=== PATIENT | female | born 1980 | race Caucasian/White ===

== ENCOUNTER 2023-12-03 16:10 | Emergency (ER) | payer SELFPAY ==
[~2023-12-03] VITALS: Ht 170.2 cm; Wt 72.7 kg
[2023-12-03 16:10] VITALS: BP 114/78; PULSE 104; RESP 19; O2SAT 99
[2023-12-03] MEDS: methylPREDNISolone SOD SUCC 125 MG/2 ML VL IM ONE (20:29)
[2023-12-03] MEDS: KETOROLAC TROMETH 30 MG/ML 1ML VIAL IM ONE (20:30)
== END 2023-12-03 20:41 | disposition home or self-care (01) ==
LOC: EDBD 16:10 → ER 16:18
DX: S33.5XXA Sprain of ligaments of lumbar spine, initial encounter (principal); F17.210 Nicotine dependence, cigarettes, uncomplicated; Z88.0 Allergy status to penicillin; V89.2XXA Person injured in unspecified motor-vehicle accident, traffic, initial encounter; Y93.89 Activity, other specified; Y92.89 Other specified places as the place of occurrence of the external cause; Y99.8 Other external cause status
CPT/HCPCS: 72040; 72070; 72100; 96372; 99284; J1885; J2919

== ENCOUNTER 2024-11-12 11:31 | Inpatient (IN) | payer OTHER ==
[~2024-11-12] VITALS: Ht 167.6 cm; Wt 85.2 kg
--- NOTE | 2024-11-12 11:44 | ED.PDOC ---
HPI (NEURO) HPI Comments 44y F who presents to the ED for chief complaint of weakness. Pt states she has been having L arm weakness and was brought to the ED for possible rule out CVA. Pt in the ED is alert and oriented x 4 and able to answer all questions. Pt in the ED states she has been having nausea with associated diaphoresis and diffuse lowe pelvic abdominal pain since 0800 this AM. Pt states her symptoms exacerbated since earlier this AM and she came to the ED for evaluation. Pt noted to be distressed in the ED, noted hyperventilating. Pt otherwise denies any other symptoms. Time Seen by MD: 11:40 Primary Care Provider: RAMESH Hernandez Notes: Medications, Allergies Information Source: Patient Mode of Arrival: Wheelchair Brought in by: self Severity: Moderate Dizziness/Weakness Severity: Does not affect activitie Headache Severity: None Timing: Hours Duration: Since onset Prehospital treatment: None Onset: At rest Circumstances: Spontaneous Symptoms: Weakness History of: None Modifying factors: Nothing Associated Signs and Symptoms: Nausea, Other (diaphoresis) Past Medical History PAST MEDICAL HISTORY: Denies Surgical History: BTL Surgical History (Other): spinal fusion 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 History: No Pertinent [employer] MA[employer]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 History Family History Family History: Unobtainable Social History Smoker: Cigarettes Alcohol: Denies ETOH Use Drugs: Denies Drug Use Lives In: Home Constitutional: reports: diaphoresis; denies: chills, fatigue, fever, malaise, sweats, weakness, others EENTM: denies: blurred vision, double vision, ear bleeding, ear discharge, ear drainage, ear pain, ear ringing, eye pain, eye redness, hearing loss, mouth pain, mouth swelling, nasal discharge, nose bleeding, nose congestion, nose pain, photophobia, tearing, throat pain, throat swelling, voice changes, others Respiratory: denies: cough, hemoptysis, orthopnea, SOB at rest, shortness of breath, SOB with excertion, stridor, wheezing, others Cardiovascular: denies: chest pain, dizzy spells, diaphoresis, Dyspnea on exertion, edema, irregular heart beat, left arm pain, lightheadedness, palpitations, PND, syncope, others Gastrointestinal: reports: nausea; denies: abdomen distended, abdominal pain, blood streaked bowels, constipated, diarrhea, dysphagia, difficulty swallowing, hematemesis, melena, poor appetite, poor fluid intake, rectal bleeding, rectal pain, vomiting, others Genitourinary: denies: abnormal vagina bleeding, burning, dyspareunia, dysuria, flank pain, frequency, hematuria, incontinence, pain, , vagina discharge, urgency, others Neurological: denies: dizziness, fainting, headache, left sided numbness, left sided weakness, numbness, paresthesia, pre-existing deficit, right sided numbness, right sided weakness, seizure, speech problems, tingling, tremors, weakness, others Musculoskeletal: denies: back pain, gout, joint pain, joint swelling, muscle pain, muscle stiffness, neck pain, others Integumetry: denies: bruises, change in color, change in hair/nails, dryness, laceration, lesions, lumps, rash, wounds, others Allergic/Immunocompromised: denies: Difficulty Healing, Frequent Infections, Hives, Itching, others Hematologic/Lymphatic: denies: anemia, blood clots, easy bleeding, easy bruising, swollen glands, others Endocrine: denies: excessive hunger, excessive sweating, excessive thirst, excessive urination, flushing, intolerance to cold, intolerance to heat, unexplained weight gain, unexplained weight loss, others Psychiatric: denies: anxiety, bipolar disorder, depression, hopeless, panic disorder, schizophrenia, sleepless, suicidal, others All Other Systems: Reviewed and Negative Physical Exam General Appearance: Moderate Distress HEENT: Normal ENT Inspection, Pharynx Normal, TMs Normal Neck: Full Range of Motion, Non-Tender, Normal, Normal Inspection Respiratory: Chest Non-Tender, Lungs Clear, No Accessory Muscle Use, No Respiratory Distress, Normal Breath Sounds Cardiovascular: No Edema, No JVD, No Murmur, No Gallop, Normal Peripheral Pulses, Regular Rate/Rhythm Breast Exam: Deferred Gastrointestinal: LLQ, No Organomegaly, No Pulsatile Mass, Normal Bowel Sounds, Soft, Suprapubic, Tenderness Genitalia: Deferred Pelvic: Deferred Rectal: Deferred Extremities: No calf tenderness, Normal capillary refill, Normal inspection, Normal range of motion, Non-tender, No pedal edema Musculoskeletal : Apperance: Normal Neurologic: Alert, hiv nurse II-XII nml as Tested, Motor Weakness, Normal Affect, Normal Mood, No Sensory Deficits Cerebellar Function: Normal Reflexes: Normal Skin: Dry, Normal Color, Warm Lymphatic: No Adenopathy EKG EKG : Pulse Rate (adult): 74 [place]: Normal Cardiac Rhythm: NSR Block: None ST: Nonsp Was a procedure done? Was a procedure done?: No Differential Diagnosis (SZ) Seizure: N/A General Weakness: Electrolyte imbalance, Vertigo: central, Vertigo: peripheral, Other (anxiety, panic attack, UTI, ) X-Ray, Labs, Meds, VS Vital Signs Date Time Temp Pulse Resp B/P (MAP) Pulse Ox O2 Delivery O2 Flow Rate FiO2 11/12/24 14:27 98.0 70 20 113/70 (84) 100 98.0 11/12/24 14:27 70 20 100 Room Air 11/12/24 12:03 74 11/12/24 11:45 97.9 72 24 126/74 99 97.9 11/12/24 11:37 74 Lab Test 11/12/24 13:05 11/12/24 11:57 Range/Units Urine Color Colorless Yellow Urine Clarity Clear Clear Urine pH 8.0 5.0-9.0 Urine Specific [place] 1.009 1.001-1.035 Urine Protein Negative Negative Urine Ketones Negative Negative Urine Blood Negative Negative /uL Urine Nitrite Negative Negative Urine Bilirubin Negative Negative Urine Urobilinogen Normal Negative mg/dL Urine Leukocyte Esterase Negative Negative /uL Urine RBC 1 0 - 4 /hpf Urine Microscopic WBC < 1 0-5 /HPF Urine Squamous Epithelial Cells Few <5 /hpf Urine Bacteria None seen None Seen /hpf Urine Glucose Normal Normal mg/dL White Blood Count 11.5 H 4.4-10.8 10^3/uL Red Blood Count 5.41 H 4.0-5.20 10^6/uL Hemoglobin 15.3 12.2-16.2 g/dL Hematocrit 45.2 36.0-46.0 % Mean Corpuscular Volume 83.5 80.0-100.0 fL Mean Corpuscular Hemoglobin 28.3 28.0-32.0 pg Mean Corpuscular Hemoglobin Concent 33.9 32.0-36.0 g/dL Red Cell Distribution Width 13.6 11.8-14.3 % Platelet Count 347 140-450 10^3/uL Mean Platelet Volume 6.9 6.9-10.8 fL Neutrophils (%) (Auto) 71.2 37.0-80.0 % Lymphocytes (%) (Auto) 21.1 10.0-50.0 % Monocytes (%) (Auto) 6.1 0.0-12.0 % Eosinophils (%) (Auto) 0.8 0.0-7.0 % Basophils (%) (Auto) 0.8 0.0-2.0 % Neutrophils # (Auto) 8.2 1.6-8.6 10 ^3/uL Lymphocytes # (Auto) 2.4 0.4-5.4 10 ^3/uL Monocytes # (Auto) 0.7 0-1.3 10 ^3/uL Eosinophils # (Auto) 0.1 0-0.8 10 ^3/uL Basophils # (Auto) 0.1 0-0.2 10 ^3/uL Nucleated Red Blood Cells 0.0 % Prothrombin Time 10.1 9.3-11.8 sec Prothrombin Time INR 0.95 0.9-1.15 Activated Partial Thromboplast Time 27.0 24.5-34.5 SEC Sodium Level 141 136-145 mmol/L Potassium Level 4.4 3.5-5.1 mmol/L Chloride Level 106 98-107 mmol/L Carbon Dioxide Level 24 20-31 mmol/L Anion Gap 11 5-15 Blood Urea Nitrogen 7 L 9-23 mg/dL Creatinine 0.82 0.550-1.02 mg/dL Glomerular Filtration Rate Calc 90 >90 mL/min BUN/Creatinine Ratio 8.5 L 10.0-20.0 Serum Glucose 102 74-106 mg/dL Calcium Level 9.4 8.7-10.4 mg/dL Beta HCG, Quantitative 0.0 L 1.5-4.2 mIU/mL Current Medications Medications (Trade) Dose Ordered Sig/Kaitlin Route Start Time Stop Time Status Last Admin Ketorolac Tromethamine (Toradol Injection) 30 mg ONCE ONCE IV 11/12/24 11:45 11/12/24 11:46 DC 11/12/24 14:29 PROCEDURE(s): PELUS - PELVIC IMPRESSION: 1. Endometrium appears T-shaped thickened measuring 33.6 mm 2. There is fluid in the cul-de-sac. 3. Fluid-filled tubular structure in the left adnexa measuring 6.1 x 3.3 x 3.6 cm. 4. There is an echogenic solid structure in the left adnexa with surrounding vascularity measures 4.6 x 4.5 x 4.8 cm. Findings may represent tubo-ovarian abscess somewhat less likely in this age group ectopic correlate with beta hCG findings. IV Hep-Lock was established. The patient was given ketorolac 30 mg IV push We spoke with Dr. Altamirano who is the OBGYN on-call and she did come down and evaluate the patient. There is a concern that this patient may have an abscess. After evaluation, we are going to admit the patient to the hospitalist OBGYN will consult on this patient. The patient will be treated medically at this time The CBC shows an elevated white blood cell count of 11.5 The chemistry panel is within normal limits. The patient is being admitted at this time We have discussed the case with the patient and they are in agreement with the management. Medical decision making was made on the fact that the patient is having intractable abdominal pain The patient is at risk for being discharged secondary to the infection that most likely will progress to sepsis. At this time, the patient is being admitted Images Reviewed?: Images reviewed and evaluated by me Time of 1ST Reevaluation: 12:10 Reevaluation 1ST: Unchanged Patient Education/Counseling: Diagnosis, Treatment Family Education/Counseling: No Family Present Departure 1 Departure Time of Disposition: 15:40 Impression: Primary Impression: Intractable abdominal pain Additional Impression: Left tubo-ovarian abscess Disposition: ADMITTED INPATIENT Admit to: Med Surg Condition: Fair Critical Care Note Critical Care Time?: No Stability Stability form required: Yes Unstable for transfer: ED Physician Assesment Heart Score Heart Score: Heart Score Response (Comments) Value History N/A 0 EKG N/A 0 Age N/A 0 Risk Factors N/A 0 Troponin N/A 0 Total 0 I personally scribed for MARCE BUCK MD ([email or web address]) on 11/12/24 at 11:44. Electronically submitted by Aman Colbert ([email or web address]). I personally scribed for MARCE BUCK MD ([email or web address]) on 11/12/24 at 11:50. Electronically submitted by Aman Colbert ([email or web address]). I personally scribed for MARCE BUCK MD ([email or web address]) on 11/12/24 at 13:28. Electronically submitted by Aman HODGESIUDDINS). MARCE BUCK MD Nov 12, 2024 11:44
[2024-11-12 12:23] LABS: Hematocrit 45.2 % (36.0-46.0); Hemoglobin 15.3 g/dL (12.2-16.2); Mean Corpuscular Hemoglobin 28.3 pg (28.0-32.0); Mean Corpuscular Volume 83.5 fL (80.0-100.0); Nucleated Red Blood Cells % 0.0 %
[2024-11-12 12:30] LABS: Chloride 106 mmol/L (98-107); Potassium 4.4 mmol/L (3.5-5.1); Sodium 141 mmol/L (136-145)
[2024-11-12 12:31] LABS: Anion Gap 11 (5-15); Calcium 9.4 mg/dL (8.7-10.4); Carbon Dioxide 24 mmol/L (20-31)
[2024-11-12 12:36] LABS: BUN/Creatinine Ratio 8.5 (10.0-20.0); Blood Urea Nitrogen 7 mg/dL (9-23); Glucose 102 mg/dL (74-106)
[2024-11-12 13:12] LABS: Urine Protein, UAD Negative (Negative)
--- NOTE | 2024-11-12 13:12 | DVH ---
INDICATION: pain TECHNIQUE: Multiple real-time grayscale transabdominal and transplant sonographic images along with color and duplex Doppler of the uterus and ovaries were obtained. COMPARISON: US PELVIS COMPLETE on DOS: 10/16/23 FINDINGS: The uterus measures 7.7 x 4.3 x 6.4 cm. The endometrial stripe measures 33.6mm. The right ovary not visible The left ovary not visible. Subsequent color and duplex Doppler interrogation of the ovaries demonstrated symmetric vascular flow to both ovaries, though this does not exclude the possibility of torsion due to the dual blood suppl y. IMPRESSION: 1. Endometrium appears T-shaped thickened measuring 33.6 mm 2. There is fluid in the cul-de-sac. 3. Fluid-filled tubular structure in the left adnexa measuring 6.1 x 3.3 x 3.6 cm. 4. There is an echogenic solid structure in the left adnexa with surrounding vascularity measures 4.6 x 4.5 x 4.8 cm. Findings may represent tubo-ovarian abscess somewhat less likely in this age group e ctopic correlate with beta hCG findings. HS:Y
[2024-11-12] MEDS: KETOROLAC TROMETH 30 MG/ML 1ML VIAL IV ONE (14:29)
--- NOTE | 2024-11-12 14:41 | ECG ---
[facility] Test Date: 2024-11-12 Test Time: 11:37:41 Pat Name: ZEE MTZ Department: Room: 0293 Gender: F Supervisor Pastry: RICKY : 1980 Requested By: MARCE BUCK Order Number: [id number] Reading MD: Marcos Lee Measurements Intervals [place] Rate: 74 P: 63 DC: 150 QRS: -5 QRSD: 93 T: 35 QT: 420 QTc: 466 Interpretive Statements Sinus rhythm Low voltage, precordial leads Electronically Signed On 11-13-2024 22:17:23 PDT by Marcos Lee Please click the below link to view image of tracing.
[2024-11-12] MEDS: IOHEXOL 300 MG/ML 100ML BOTTLE IJ ONE ×2 (15:16→17:57)
[2024-11-12 15:24] LABS: INR 0.95 (0.9-1.15); Partial Thromboplastin Time 27.0 SEC (24.5-34.5); Prothrombin Time 10.1 sec (9.3-11.8)
[2024-11-12 15:30] VITALS: PULSE 73; RESP 20; O2SAT 95
[2024-11-12] MEDS ORDERED: FOLI-119 PO (15:42)
[2024-11-12] MEDS ORDERED: ONDANSETRON HCL 4 MG/2 ML VIAL IV PRN (15:45)
--- NOTE | 2024-11-12 16:13 | DVHINCON2 ---
Date of service: Nov 12, 2024 Referring Physician hospitalist Reason for Consultation .pelvic sono shows left adenxal cyst measuring 6cm possible hydrosalpinx History of Present Illness pt presents to er c/o l arm weakness .pt also reports some abd pain .she has hx of right hydrosalpinx for which she underwent r salpingectomy by dr griffin ten yrs ago. she denies having fever or chills .last pap was a yr ago.pelvic sono shows left adenxal cyst measuring 6cm possible hydrosalpinx back problems and neck disc fusion as well as back surgery Past Medical History neck and back problems Past Surgical History back and neck surg,right salpingectomy,tubal ligation Family History none Social History smoker,one vag del Allergies: Coded Allergies: NO KNOWN ALLERGIES (Unverified , 11/12/24) Home Meds Reported Medications Folic Acid (Folic Acid) 1 Mg Tab, 1 TAB PO DAILY 11/12/24 Current Medications Current Medications Medications (Trade) Dose Ordered Sig/Kaitlin Route PRN Reason Start Time Stop Time Status Last Admin Ceftriaxone Sodium 50 ml @ 100 mls/hr DAILY@09 IV 11/12/24 15:15 11/12/24 15:41 DC Piperacillin Sod/ Tazobactam Sod 100 ml @ 25 mls/hr Q8HR IV 11/12/24 22:00 UNV Metronidazole 100 ml @ 100 mls/hr Q8HR IV 11/12/24 15:45 UNV Acetaminophen/ Hydrocodone Bitart ([place] 5/325MG Tab) 1 tab Q4HP PRN PO MODERATE PAIN (4-6 PAIN SCALE) 11/12/24 15:45 Ondansetron HCl (Zofran) 4 mg Q4HP PRN IV NAUSEA / VOMITING 11/12/24 15:45 Acetaminophen (Tylenol Tablet) 650 mg Q6HP PRN PO PAIN SCALE 1-3 OR TEMP>100.4 11/12/24 15:45 Morphine Sulfate 2 mg Q4HPRN PRN IV SEVERE PAIN (7-10 PAIN SCALE) 11/12/24 15:45 UNV Folic Acid 1 mg DAILY PO 11/13/24 10:00 Aspirin 81 mg DAILY PO 11/13/24 10:00 UNV Atorvastatin Calcium (Lipitor) 40 mg HS PO 11/12/24 22:00 UNV Review of Systems Constitutional: no fever, chill, weight loss HEENT: no eye pain, no hearing loss, no oral lesion, no scleral icterus Heart: no chest pain, no chest pressure Lung: no cough, no dyspnea with exertion Abdomen: see HPI : no pain with urination, normal appearing urine Musculoskeletal: no joint pain, no muscle pain Neurological: no seizure, no loss of sensation, pos weakness in left arm Pysch: no depression, no anxiety Derm: no rash, no jaundice Vital Signs Vital Signs Date Time Temp Pulse Resp B/P (MAP) Pulse Ox O2 Delivery O2 Flow Rate FiO2 11/12/24 14:27 98.0 70 20 113/70 (84) 100 98.0 11/12/24 14:27 Room Air Physical Exam HEENT: [nl CARDIAC: [rrr] PULMONARY: [cta] ABDOMEN: [soft,no rigidity,llq tenderness pelvic- -vag warm,cx nl nt,uterus nl ,adenxa nt Labs/Diagnostic Data Labs Test 11/12/24 13:05 11/12/24 11:57 Range/Units Urine Color Colorless Yellow Urine Clarity Clear Clear Urine pH 8.0 5.0-9.0 Urine Specific [place] 1.009 1.001-1.035 Urine Protein Negative Negative Urine Ketones Negative Negative Urine Blood Negative Negative /uL Urine Nitrite Negative Negative Urine Bilirubin Negative Negative Urine Urobilinogen Normal Negative mg/dL Urine Leukocyte Esterase Negative Negative /uL Urine RBC 1 0 - 4 /hpf Urine Microscopic WBC < 1 0-5 /HPF Urine Squamous Epithelial Cells Few <5 /hpf Urine Bacteria None seen None Seen /hpf Urine Glucose Normal Normal mg/dL White Blood Count 11.5 H 4.4-10.8 10^3/uL Red Blood Count 5.41 H 4.0-5.20 10^6/uL Hemoglobin 15.3 12.2-16.2 g/dL Hematocrit 45.2 36.0-46.0 % Mean Corpuscular Volume 83.5 80.0-100.0 fL Mean Corpuscular Hemoglobin 28.3 28.0-32.0 pg Mean Corpuscular Hemoglobin Concent 33.9 32.0-36.0 g/dL Red Cell Distribution Width 13.6 11.8-14.3 % Platelet Count 347 140-450 10^3/uL Mean Platelet Volume 6.9 6.9-10.8 fL Neutrophils (%) (Auto) 71.2 37.0-80.0 % Lymphocytes (%) (Auto) 21.1 10.0-50.0 % Monocytes (%) (Auto) 6.1 0.0-12.0 % Eosinophils (%) (Auto) 0.8 0.0-7.0 % Basophils (%) (Auto) 0.8 0.0-2.0 % Neutrophils # (Auto) 8.2 1.6-8.6 10 ^3/uL Lymphocytes # (Auto) 2.4 0.4-5.4 10 ^3/uL Monocytes # (Auto) 0.7 0-1.3 10 ^3/uL Eosinophils # (Auto) 0.1 0-0.8 10 ^3/uL Basophils # (Auto) 0.1 0-0.2 10 ^3/uL Nucleated Red Blood Cells 0.0 % Prothrombin Time 10.1 9.3-11.8 sec Prothrombin Time INR 0.95 0.9-1.15 Activated Partial Thromboplast Time 27.0 24.5-34.5 SEC Sodium Level 141 136-145 mmol/L Potassium Level 4.4 3.5-5.1 mmol/L Chloride Level 106 98-107 mmol/L Carbon Dioxide Level 24 20-31 mmol/L Anion Gap 11 5-15 Blood Urea Nitrogen 7 L 9-23 mg/dL Creatinine 0.82 0.550-1.02 mg/dL Glomerular Filtration Rate Calc 90 >90 mL/min BUN/Creatinine Ratio 8.5 L 10.0-20.0 Serum Glucose 102 74-106 mg/dL Calcium Level 9.4 8.7-10.4 mg/dL Beta HCG, Quantitative 0.0 L 1.5-4.2 mIU/mL Primary Diagnosis abd pain ,hydrosalpinx left adenxa 2' Diagnosis/Comorbidities left arm weakness-hx of disc ds Plan start abx ,pain meds will follow Plan discussed with: Patient Visit Coding OBGYN Date of Service: Nov 12, 2024 Billing Provider: ALANNA MARTINEZ DO JD [employer]WARDS DEVELOPER Common Visit Codes: [id number] OBS CARE (HIGH) JD [employer]WARDS DEVELOPER Consultation Codes: [id number] CONSULT <110MIN ALANNA MARTINEZ DO Nov 12, 2024 16:13
--- NOTE | 2024-11-12 16:24 | DVHHP2 ---
History of Present Illness Reason for Visit: Left lower quadrant abdominal pain with bilateral arm numbness and tin History of Present Illness Sheila Hernandez is a 44-year-old female with past medical history of tubal ligation, spinal fusion, 2 back surgeries in 2022 in 2023, and 2 uterine surgeries involving cyst removals who presents to the ED with left lower quadrant pain that started 7:00 a.m. this morning and developed bilateral upper extremity numbness and tingling with left-sided weakness. Patient stated that the pain may have been attributed from the abdomen. She reports that her abdominal pain is 10/10 sharp and constant. She reports that there are no triggering or alleviating factors. She also endorsed some upper and lower lip numbness and tingling. Patient's spouse Amos is at the bedside. She reports that her OB doctor is Dr. Vo at [facility]. Patient also reports that she smokes about 15 sticks of cigarettes per day. Patient denies any recent trauma or injury, recent sick contacts, recent ingestion of spoiled food, recent travels, chest pain, shortness of breath, fever, chills, dizziness, nausea, vomiting, diarrhea, or urinary symptoms. Past Surgical History: Other (Spinal fusion, 2 back surgeries, and 2 uterine surgeries with cyst removals), Tubal Ligation Family History: Other (Mom with dementia. Dad with COPD and heart disease whom is .) Smoke: 1 pack per day ALCOHOL: none Drugs: None Lives: with Family Domestic Violence: Neg Review of Systems Gastrointestinal: Abdominal Pain Neurological: Weakness, Numbness, Other (BUE tingling ) Allergies: Coded Allergies: NO KNOWN ALLERGIES (Unverified , 11/12/24) Medications Current Medications Medications Dose Ordered Sig/Kaitlin Route Start Time Stop Time Status Last Admin Dose Admin Ceftriaxone Sodium 50 ml @ 100 mls/hr DAILY@09 IV 11/12/24 15:15 Piperacillin Sod/ Tazobactam Sod 100 ml @ 25 mls/hr Q8HR IV 11/12/24 22:00 UNV Metronidazole 100 ml @ 100 mls/hr Q8HR IV 11/12/24 15:45 UNV Acetaminophen/ Hydrocodone Bitart 1 tab Q4HP PRN PO 11/12/24 15:45 UNV Ondansetron HCl 4 mg Q4HP PRN IV 11/12/24 15:45 UNV Acetaminophen 650 mg Q6HP PRN PO 11/12/24 15:45 UNV Morphine Sulfate 2 mg Q4HPRN PRN IV 11/12/24 15:45 UNV Exam Vital Signs Vital Signs Date Time Temp Pulse Resp B/P (MAP) Pulse Ox O2 Delivery O2 Flow Rate FiO2 11/12/24 14:27 98.0 70 20 113/70 (84) 100 98.0 11/12/24 14:27 Room Air General Appearance: Alert, Oriented X3, Cooperative, No acute distress HEENT: Atraumatic, PERRLA, EOMI, Mucous membr. moist/pink Respiratory: Clear to auscultation, Normal air movement Cardiovascular: Regular rate, Normal S1, Normal S2, No murmurs Abdominal: Normal bowel sounds, Soft, Other (LLQ tenderness upon palpation) Extremities: No clubbing, No cyanosis, No edema, Normal pulses, No tenderness/swelling Skin: No significant lesion Neuro: Normal speech, Strength at 5/5 X4 ext, Normal tone, Sensation intact Psych/Mental Status: Mental status NL, Mood NL Labs/Xrays Labs Test 11/12/24 13:05 11/12/24 11:57 Range/Units Urine Color Colorless Yellow Urine Clarity Clear Clear Urine pH 8.0 5.0-9.0 Urine Specific [place] 1.009 1.001-1.035 Urine Protein Negative Negative Urine Ketones Negative Negative Urine Blood Negative Negative /uL Urine Nitrite Negative Negative Urine Bilirubin Negative Negative Urine Urobilinogen Normal Negative mg/dL Urine Leukocyte Esterase Negative Negative /uL Urine RBC 1 0 - 4 /hpf Urine Microscopic WBC < 1 0-5 /HPF Urine Squamous Epithelial Cells Few <5 /hpf Urine Bacteria None seen None Seen /hpf Urine Glucose Normal Normal mg/dL White Blood Count 11.5 H 4.4-10.8 10^3/uL Red Blood Count 5.41 H 4.0-5.20 10^6/uL Hemoglobin 15.3 12.2-16.2 g/dL Hematocrit 45.2 36.0-46.0 % Mean Corpuscular Volume 83.5 80.0-100.0 fL Mean Corpuscular Hemoglobin 28.3 28.0-32.0 pg Mean Corpuscular Hemoglobin Concent 33.9 32.0-36.0 g/dL Red Cell Distribution Width 13.6 11.8-14.3 % Platelet Count 347 140-450 10^3/uL Mean Platelet Volume 6.9 6.9-10.8 fL Neutrophils (%) (Auto) 71.2 37.0-80.0 % Lymphocytes (%) (Auto) 21.1 10.0-50.0 % Monocytes (%) (Auto) 6.1 0.0-12.0 % Eosinophils (%) (Auto) 0.8 0.0-7.0 % Basophils (%) (Auto) 0.8 0.0-2.0 % Neutrophils # (Auto) 8.2 1.6-8.6 10 ^3/uL Lymphocytes # (Auto) 2.4 0.4-5.4 10 ^3/uL Monocytes # (Auto) 0.7 0-1.3 10 ^3/uL Eosinophils # (Auto) 0.1 0-0.8 10 ^3/uL Basophils # (Auto) 0.1 0-0.2 10 ^3/uL Nucleated Red Blood Cells 0.0 % Prothrombin Time 10.1 9.3-11.8 sec Prothrombin Time INR 0.95 0.9-1.15 Activated Partial Thromboplast Time 27.0 24.5-34.5 SEC Sodium Level 141 136-145 mmol/L Potassium Level 4.4 3.5-5.1 mmol/L Chloride Level 106 98-107 mmol/L Carbon Dioxide Level 24 20-31 mmol/L Anion Gap 11 5-15 Blood Urea Nitrogen 7 L 9-23 mg/dL Creatinine 0.82 0.550-1.02 mg/dL Glomerular Filtration Rate Calc 90 >90 mL/min BUN/Creatinine Ratio 8.5 L 10.0-20.0 Serum Glucose 102 74-106 mg/dL Calcium Level 9.4 8.7-10.4 mg/dL Beta HCG, Quantitative 0.0 L 1.5-4.2 mIU/mL INDICATION: pain TECHNIQUE: Multiple real-time grayscale transabdominal and transplant sonographic images along with color and duplex Doppler of the uterus and ovaries were obtained. COMPARISON: US PELVIS COMPLETE on DOS: 10/16/23 FINDINGS: The uterus measures 7.7 x 4.3 x 6.4 cm. The endometrial stripe measures 33.6mm. The right ovary not visible The left ovary not visible. Subsequent color and duplex Doppler interrogation of the ovaries demonstrated symmetric vascular flow to both ovaries, though this does not exclude the possibility of torsion due to the dual blood supply. IMPRESSION: 1. Endometrium appears T-shaped thickened measuring 33.6 mm 2. There is fluid in the cul-de-sac. 3. Fluid-filled tubular structure in the left adnexa measuring 6.1 x 3.3 x 3.6 cm. 4. There is an echogenic solid structure in the left adnexa with surrounding vascularity measures 4.6 x 4.5 x 4.8 cm. Findings may represent tubo-ovarian abscess somewhat less likely in this age group ectopic correlate with beta hCG findings. SEPSIS Sepsis Screen Date sepsis recognized/suspect: Nov 12, 2024 Time Sepsis recognized/suspect: 1129 Recent Procedure: No On Antibiotic Therapy: No Respiratory Rate >20: No Heart Rate >90: No Temp<36 C (96.8 F) or >38.3 C: No SBP <90 or MAP <65 mmHG: No New Acute Mental Status Change: No Is the patient on CPAP, BIPAP,: No Physician Orders Heplock Iv (11/12/24 11:37) Pelvic (11/12/24 11:37) Transvaginal Us Non Ob (11/12/24 12:18) Ct Ab Pel With Iv Con Only (11/12/24 14:51) Type And Screen (11/12/24 14:52) Head Without Contrast (11/12/24 15:00) Ceftriaxone 1gm/50ml (Rocephin) (11/12/24 15:15) Piperacillin-Tazob 3.375gm (Zosyn 3.375g (11/12/24 22:00) Metronidazole 500mg/100ml (Flagyl 500mg/ (11/12/24 15:45) Admit (11/12/24 15:32) Allergies (11/12/24 15:32) Code Status (11/12/24 15:32) Hydrocodone-Acet 5/325mg Tab (Enola 5/32 (11/12/24 15:45) Ondansetron Hcl (Zofran) (11/12/24 15:45) Complete Blood Count (11/13/24 04:00) Comprehensive Metabolic Panel (11/13/24 04:00) Cardiac Diet-2gna,Lofat,Lochol (11/12/24 Dinner) Acetaminophen Tablet (Tylenol Tablet) (11/12/24 15:45) Morphine Sulfate Injection (11/12/24 15:45) Sequential Compression Device (11/12/24 ) Vital Signs Date Time Temp Pulse Resp B/P (MAP) Pulse Ox O2 Delivery O2 Flow Rate FiO2 11/12/24 14:27 98.0 70 20 113/70 (84) 100 98.0 11/12/24 14:27 70 20 100 Room Air 11/12/24 12:03 74 11/12/24 11:45 97.9 72 24 126/74 99 97.9 11/12/24 11:37 74 Laboratory Tests Test 11/12/24 11:57 White Blood Count 11.5 10^3/uL (4.4-10.8) H Medications Medications Dose Ordered Sig/Kaitlin Route Start Time Stop Time Status Last Admin Dose Admin Ketorolac Tromethamine 30 mg ONCE ONCE IV 11/12/24 11:45 11/12/24 11:46 DC 11/12/24 14:29 30 MG Assessment/Plan Assessment/Plan Assessment Intractable abdominal pain possibly due to abscess Endometrium appears T-shaped thickened measuring 33.6 mm Fluid-filled tubular structure in the left adnexa measuring 6.1 x 3.3 x 3.6 cm. There is an echogenic solid structure in the left adnexa with surrounding vascularity measures 4.6 x 4.5 x 4.8 cm, possible tubo-ovarian abscess Bilateral arm numbness and tingling with left-sided weakness rule out stroke Leukocytosis likely due to abscess Tobacco use History of tubal ligation History of spinal fusion History of 2 back surgeries in 2022 in 2023 History of 2 uterine surgeries-cyst removals Plan Admit to med surge Aspirin + statin IV antibiotics-Zosyn + Flagyl + gentamicin HCG noted CT abdomen and pelvis ordered CT head ordered Transvaginal ultrasound noted Antiemetics Pain management Diet Home medications reconciled DVT prophylaxis-SCDs PUD prophylaxis-PPIs Discussed plan of care with patient and nurse Ob consulted Consider neuro consult Counseled patient on cessation of tobacco use 34694 Behavior change smoking greater than 10 minutes about use of other options also gave option of nicotine patch 13179 Preventive counseling healthy eating habits, physical activity, and regular checkups Plan discussed with: Patient, Spouse My Orders Orders - VENTURA MANZANARES Procedure Category Date Status Time Head Without Contrast CT 11/12/24 Logged 15:00 Ceftriaxone 1gm/50ml PHA 11/12/24 In Process (Rocephin) 15:15 Piperacillin-Tazob PHA 11/12/24 Logged 3.375gm (Zosyn 3.375g 22:00 Metronidazole PHA 11/12/24 Logged 500mg/100ml (Flagyl 15:45 Admit ADMIT 11/12/24 Transmitted 15:32 Allergies PARAG 11/12/24 In Process 15:32 Code Status CODE 11/12/24 Transmitted 15:32 Hydrocodone-Acet PHA 11/12/24 Logged 5/325mg Tab (Enola 15:45 Ondansetron Hcl PHA 11/12/24 Logged (Zofran) 15:45 Complete Blood Count LAB 11/13/24 Verified 04:00 Comprehensive LAB 11/13/24 Verified Metabolic Panel 04:00 Cardiac DIET 11/12/24 Transmitted Diet-2gna,Lofat,Lochol Dinner Acetaminophen Tablet PHA 11/12/24 Logged (Tylenol Tablet) 15:45 Morphine Sulfate PHA 11/12/24 Logged Injection 15:45 Sequential PARAG 11/12/24 In Process Compression Device Date of Service: Nov 12, 2024 Billing Provider: VENTURA MANZANARES Common Visit Codes: 19340-BPTVIOF INP/OBS CARE (HIGH) Secondary Visit Codes: 08016-[id number] COUNSELING IND, 32224-PIXIY CHNG SMOKING >10MIN VENTURA MANZANARES Nov 12, 2024 16:24
[2024-11-12] MEDS ORDERED: MORPHINE SULFATE 4 MG/ML SYR/VIAL IV PRN (17:00)
--- NOTE | 2024-11-12 18:17 | DVH ---
CT HEAD WITHOUT CONTRAST Indication: left arm weakness r/o stroke EXAM DATE: 11/12/2024 05:37 PM COMPARISON: None TECHNIQUE: CT of the head without intravenous contrast. RADIATION DOSE: CTDIvol: 21 mGy, DLP: 2115 mGy*cm FINDINGS: There is no intracranial hemorrhage. There is no extra-axial fluid, mass, mass effect or midline shif t. The ventricles are midline and normal in size. Basilar cisterns are patent. Otero-white differentia tion is maintained. The paranasal sinuses and mastoids are well-pneumatized. Imaged portion of the orbits are unremarkabl e. IMPRESSION: No intracranial hemorrhage or mass effect.
--- NOTE | 2024-11-12 18:21 | DVH ---
Exam: CT CT AB PEL WITH IV CON ONLY History: pain COMPARISON: US PELVIC on DOS: 11/12/24, US PELVIS COMPLETE on DOS: 10/16/23, CT ABD/PEL on DOS: 10/16/23 Technique: Multidetector spiral CT of the abdomen and pelvis was performed from lung bases to pubic s ymphysis. Intravenous contrast was administered during this examination. Portal venous imaging was obtained. Axial, coronal and sagittal multiplanar reformats were performed by the technologist on a separate workstation. Radiation Dose : 1. Abdomen/Pelvis: CTDIvol 21 mGy, DLP 2115 mGy*cm. CONTRAST: Type of contrast: Omni 300 Contrast injected: 100 ml Findings: Lung Bases: No acute or significant lung base finding. Normal heart size. No pleural or pericardial effusion. Liver: The liver is normal in size. No focal lesions. Normal hepatic vascular enhancement. Gallbladder and Biliary Tree: Unremarkable Spleen: Unremarkable Pancreas: The pancreas is normal in appearance without focal lesions or abnormal enhancement. Adrenal Glands: Unremarkable Kidneys: No hydronephrosis. Bladder: Unremarkable Bowel: The stomach is grossly normal in appearance. Small bowel and colon are normal in caliber and d istribution. Normal appendix is visualized in the right lower quadrant without findings of appendici tis. Ascites: Absent Lymphadenopathy: No mesenteric, retroperitoneal or periportal lymphadenopathy. Abdominal Wall and Mesentery: Unremarkable. Vasculature: The visualized abdominal aorta is normal in size and caliber. Abdominal and pelvic vess els demonstrate normal enhancement. Pelvic Organs: 2 large left adnexal cysts, the largest measuring up to 6.5 cm. Musculoskeletal: No aggressive focal bony lesions, acute fractures or dislocation. Surgical fixation hardware seen in the lower lumbar spine. IMPRESSION: 1. No acute abdominal or pelvic finding. 2. Large left adnexal cysts measuring up to 6.5 cm. Radiation optimization: All CT scans at this facility use at least one of these dose optimization yi hniques: automated exposure control mA and/or kV adjustment per patient size (includes targeted exam s where dose is matched to clinical indication) or iterative reconstruction.
[2024-11-12 18:22] VITALS: BP 122/70; PULSE 78; RESP 18; TEMP 98.3; O2SAT 98
[2024-11-12 18:36] VITALS: BP 128/90; PULSE 77; RESP 20; TEMP 98; O2SAT 96
[2024-11-12] MEDS ORDERED: HYDR-4902 PO (20:19)
[2024-11-12] MEDS ORDERED: IBUP-1454 PO (20:19)
[2024-11-12] MEDS ORDERED: ACE650RS PR (20:19)
[2024-11-12] MEDS: GENTAMICIN SULFATE 120 MG in D5W 5% 100 ML IV ONE ×2 (20:52→20:53)
[2024-11-12 21:00] VITALS: BP 112/64; PULSE 68; RESP 20; TEMP 98.1; O2SAT 95
[2024-11-12] MEDS: ATORVASTATIN 20 MG TAB PO SCH (22:30)
[2024-11-13] MEDS: PIPERACILLIN-TAZOB 3.375GM 100 ML IV SCH (00:46)
[2024-11-13 01:00] VITALS: BP 115/68; PULSE 72; RESP 20; TEMP 98.3; O2SAT 95
[2024-11-13 05:00] VITALS: BP 128/71; PULSE 73; RESP 20; TEMP 98; O2SAT 95
[2024-11-13] MEDS: HYDROcodone-ACET 5/325MG TAB PO PRN (06:53)
[2024-11-13 07:20] LABS: Hematocrit 40.8 % (36.0-46.0); Hemoglobin 13.9 g/dL (12.2-16.2); Mean Corpuscular Hemoglobin 28.5 pg (28.0-32.0); Mean Corpuscular Volume 83.6 fL (80.0-100.0); Nucleated Red Blood Cells % 0.3 %
[2024-11-13 07:39] LABS: Alanine Aminotransferase 15 U/L (7-40); Albumin 3.8 g/dL (3.2-4.8); Alkaline Phosphatase 56 U/L (46-116); Anion Gap 8 (5-15); BUN/Creatinine Ratio 9.3 (10.0-20.0); Bilirubin, Total 0.6 mg/dL (0.2-1.0); Carbon Dioxide 23 mmol/L (20-31); Glucose 102 mg/dL (74-106); Potassium 4.2 mmol/L (3.5-5.1); Sodium 142 mmol/L (136-145); Total Protein 6.0 g/dL (5.7-8.2)
[2024-11-13 07:46] LABS: Blood Urea Nitrogen 7 mg/dL (9-23); Calcium 8.5 mg/dL (8.7-10.4); Chloride 111 mmol/L (98-107)
[2024-11-13 08:58] VITALS: BP 138/82; PULSE 75; RESP 16; TEMP 98.1; O2SAT 98
[2024-11-13] MEDS: FOLIC ACID 1 MG TAB PO SCH (09:13)
[2024-11-13] MEDS: ACETAMINOPHEN 325 MG TAB PO PRN (09:26)
--- NOTE | 2024-11-13 11:43 | DVHPN2 ---
Chief Complaints Patient reports: No new complaints Nursing reports: No new complaints Objective Vitals Vital Signs Date Time Temp Pulse Resp B/P (MAP) Pulse Ox O2 Delivery O2 Flow Rate FiO2 11/13/24 08:58 98.1 75 16 138/82 (100) 98 98.1 11/12/24 20:00 Room Air* 0 21 Medications Current Medications Medications (Trade) Dose Ordered Sig/Kaitlin Route PRN Reason Start Time Stop Time Status Last Admin Acetaminophen (Tylenol Tablet) 650 mg Q6HP PRN PO PAIN SCALE 1-3 OR TEMP>100.4 11/12/24 15:45 11/13/24 09:26 Acetaminophen/ Hydrocodone Bitart ([place] 5/325MG Tab) 1 tab Q4HP PRN PO MODERATE PAIN (4-6 PAIN SCALE) 11/12/24 15:45 11/13/24 06:53 Aspirin 81 mg DAILY PO 11/13/24 10:00 11/13/24 09:13 Atorvastatin Calcium (Lipitor) 40 mg HS PO 11/12/24 22:00 11/12/24 22:30 Folic Acid 1 mg DAILY PO 11/13/24 10:00 11/13/24 09:13 Metronidazole 100 ml @ 100 mls/hr Q8HR IV 11/12/24 15:45 11/13/24 05:30 Morphine Sulfate 2 mg Q4HPRN PRN IV SEVERE PAIN (7-10 PAIN SCALE) 11/12/24 17:00 Ondansetron HCl (Zofran) 4 mg Q4HP PRN IV NAUSEA / VOMITING 11/12/24 15:45 Piperacillin Sod/ Tazobactam Sod 100 ml @ 25 mls/hr Q8HR IV 11/12/24 22:00 11/13/24 06:49 Abdominal: Soft, Non tender Extremities: Normal Studies Laboratory Tests 11/13/24 06:32 Test 11/13/24 06:32 Range/Units Serum Glucose 102 74-106 mg/dL Ass/Plan Assessment abd pain/pelvic pain improving .tolerating diet and remains pain free Plan supportive care fu out pt with speech language specialist for surgery Visit Coding OBGYN Date of Service: Nov 13, 2024 Billing Provider: ALANNA MARTINEZ DO DEPUTY K 9 Common Visit Codes: [id number] INP/OBS CARE(HIGH) DEPUTY K 9 Consultation Codes: 32125-[id number] CONSULT <55MIN ALANNA MARTINEZ DO Nov 13, 2024 11:43
[2024-11-13 13:00] VITALS: BP 107/70; PULSE 75; RESP 16; TEMP 99; O2SAT 97
--- NOTE | 2024-11-13 14:58 | DVHPN2 ---
Reviewed: Care Plan, H&P, Labs, Medications, Previous Orders Changes from previous H/P or p: No Changes General: Per HPI Gastrointestinal: Abdominal Pain Objective Vitals Vital Signs Date Time Temp Pulse Resp B/P (MAP) Pulse Ox O2 Delivery O2 Flow Rate FiO2 11/13/24 13:00 99.0 75 16 107/70 (82) 97 99.0 11/13/24 08:00 Room Air* 0 21 Intake/Output Intake and Output 11/13/24 07:00 Intake Total 700 ml Balance 700 ml Intake Oral 300 ml IV Total 400 ml # Voids 2 Medications Current Medications Medications Dose Ordered Sig/Kaitlin Route Start Time Stop Time Status Last Admin Dose Admin Piperacillin Sod/ Tazobactam Sod 100 ml @ 25 mls/hr Q8HR IV 11/12/24 22:00 11/13/24 06:49 25 MLS/HR Metronidazole 100 ml @ 100 mls/hr Q8HR IV 11/12/24 15:45 11/13/24 14:39 100 MLS/HR Acetaminophen/ Hydrocodone Bitart 1 tab Q4HP PRN PO 11/12/24 15:45 11/13/24 06:53 1 TAB Ondansetron HCl 4 mg Q4HP PRN IV 11/12/24 15:45 Acetaminophen 650 mg Q6HP PRN PO 11/12/24 15:45 11/13/24 09:26 650 MG Morphine Sulfate 2 mg Q4HPRN PRN IV 11/12/24 17:00 Folic Acid 1 mg DAILY PO 11/13/24 10:00 11/13/24 09:13 1 MG Aspirin 81 mg DAILY PO 11/13/24 10:00 11/13/24 09:13 81 MG Atorvastatin Calcium 40 mg HS PO 11/12/24 22:00 11/12/24 22:30 40 MG Laboratory Results Laboratory Tests 11/13/24 06:32 Chemistry Test 11/13/24 06:32 Albumin 3.8 g/dL (3.2-4.8) Calcium Level 8.5 mg/dL (8.7-10.4) L Total Protein 6.0 g/dL (5.7-8.2) LFT Test 11/13/24 06:32 Alanine Aminotransferase (ALT) 15 U/L (7-40) Alkaline Phosphatase 56 U/L (46-116) Aspartate Amino Transferase (AST) 16 U/L (13-40) Total Bilirubin 0.6 mg/dL (0.2-1.0) Urinalysis Test 11/12/24 13:05 Urine Color Colorless (Yellow) Urine Clarity Clear (Clear) Urine pH 8.0 (5.0-9.0) Urine Specific [place] 1.009 (1.001-1.035) Urine Protein Negative (Negative) Urine Ketones Negative (Negative) Urine Blood Negative /uL (Negative) Urine Nitrite Negative (Negative) Urine Bilirubin Negative (Negative) Urine Urobilinogen Normal mg/dL (Negative) Urine Leukocyte Esterase Negative /uL (Negative) Urine RBC 1 /hpf (0 - 4) Urine Microscopic WBC < 1 /HPF (0-5) Urine Squamous Epithelial Cells Few /hpf (<5) Urine Bacteria None seen /hpf (None Seen) Urine Glucose Normal mg/dL (Normal) Assessment/Plan Assessment/Plan Sheila Hernandez is a 44-year-old female with past medical history of tubal ligation, spinal fusion, 2 back surgeries in 2022 in 2023, and 2 uterine surgeries involving cyst removals who presents to the ED with left lower quadrant pain that started 7:00 a.m. this morning and developed bilateral upper extremity numbness and tingling with left-sided weakness. Patient stated that the pain may have been attributed from the abdomen. She reports that her abdominal pain is 10/10 sharp and constant. She reports that there are no triggering or alleviating factors. She also endorsed some upper and lower lip numbness and tingling. Patient's spouse Amos is at the bedside. She reports that her OB doctor is Dr. Vo at [facility]. Patient also reports that she smokes about 15 sticks of cigarettes per day. Patient denies any recent trauma or injury, recent sick contacts, recent ingestion of spoiled food, recent travels, chest pain, shortness of breath, fever, chills, dizziness, nausea, vomiting, diarrhea, or urinary symptoms. Intractable abdominal pain possibly due to abscess Endometrium appears T-shaped thickened measuring 33.6 mm Fluid-filled tubular structure in the left adnexa measuring 6.1 x 3.3 x 3.6 cm. There is an echogenic solid structure in the left adnexa with surrounding vascularity measures 4.6 x 4.5 x 4.8 cm, possible tubo-ovarian abscess Bilateral arm numbness and tingling with left-sided weakness rule out stroke Leukocytosis likely due to abscess Tobacco use History of tubal ligation History of spinal fusion History of 2 back surgeries in 2022 in 2023 History of 2 uterine surgeries-cyst removals Plan discussed with: Patient Date of Service: Nov 13, 2024 Billing Provider: ANISH ORELLANA DO Common Visit Codes: [id number] INP/OBS CARE(HIGH) ANISH ORELLANA DO Nov 13, 2024 14:58
--- NOTE | 2024-11-13 15:26 | DVHDS2 ---
Discharge Summary Date of Admission Nov 12, 2024 at 15:32 Date of Discharge: Nov 13, 2024 Labs/Diagnostic Data: Laboratory Results Test 11/13/24 06:32 11/12/24 15:24 11/12/24 13:05 11/12/24 11:57 White Blood Count 9.6 10^3/uL (4.4-10.8) Red Blood Count 4.88 10^6/uL (4.0-5.20) Hemoglobin 13.9 g/dL (12.2-16.2) Hematocrit 40.8 % (36.0-46.0) Mean Corpuscular Volume 83.6 fL (80.0-100.0) Mean Corpuscular Hemoglobin 28.5 pg (28.0-32.0) Mean Corpuscular Hemoglobin Concent 34.1 g/dL (32.0-36.0) Red Cell Distribution Width 13.3 % (11.8-14.3) Platelet Count 274 10^3/uL (140-450) Mean Platelet Volume 6.8 fL (6.9-10.8) Neutrophils (%) (Auto) 77.0 % (37.0-80.0) Lymphocytes (%) (Auto) 16.3 % (10.0-50.0) Monocytes (%) (Auto) 5.3 % (0.0-12.0) Eosinophils (%) (Auto) 0.9 % (0.0-7.0) Basophils (%) (Auto) 0.5 % (0.0-2.0) Neutrophils # (Auto) 7.4 10 ^3/uL (1.6-8.6) Lymphocytes # (Auto) 1.6 10 ^3/uL (0.4-5.4) Monocytes # (Auto) 0.5 10 ^3/uL (0-1.3) Eosinophils # (Auto) 0.1 10 ^3/uL (0-0.8) Basophils # (Auto) 0 10 ^3/uL (0-0.2) Nucleated Red Blood Cells 0.3 % Sodium Level 142 mmol/L (136-145) Potassium Level 4.2 mmol/L (3.5-5.1) Chloride Level 111 mmol/L (98-107) Carbon Dioxide Level 23 mmol/L (20-31) Anion Gap 8 (5-15) Blood Urea Nitrogen 7 mg/dL (9-23) Creatinine 0.75 mg/dL (0.550-1.02) Glomerular Filtration Rate Calc 100 mL/min (>90) BUN/Creatinine Ratio 9.3 (10.0-20.0) Serum Glucose 102 mg/dL (74-106) Calcium Level 8.5 mg/dL (8.7-10.4) Total Bilirubin 0.6 mg/dL (0.2-1.0) Aspartate Amino Transferase (AST) 16 U/L (13-40) Alanine Aminotransferase (ALT) 15 U/L (7-40) Alkaline Phosphatase 56 U/L (46-116) Total Protein 6.0 g/dL (5.7-8.2) Albumin 3.8 g/dL (3.2-4.8) Lactic Acid Level 1.2 mmol/L (0.4-2.0) Urine Color Colorless (Yellow) Urine Clarity Clear (Clear) Urine pH 8.0 (5.0-9.0) Urine Specific [place] 1.009 (1.001-1.035) Urine Protein Negative (Negative) Urine Ketones Negative (Negative) Urine Blood Negative /uL (Negative) Urine Nitrite Negative (Negative) Urine Bilirubin Negative (Negative) Urine Urobilinogen Normal mg/dL (Negative) Urine Leukocyte Esterase Negative /uL (Negative) Urine RBC 1 /hpf (0 - 4) Urine Microscopic WBC < 1 /HPF (0-5) Urine Squamous Epithelial Cells Few /hpf (<5) Urine Bacteria None seen /hpf (None Seen) Urine Glucose Normal mg/dL (Normal) Prothrombin Time 10.1 sec (9.3-11.8) Prothrombin Time INR 0.95 (0.9-1.15) Activated Partial Thromboplast Time 27.0 SEC (24.5-34.5) Beta HCG, Quantitative 0.0 mIU/mL (1.5-4.2) Gentamicin Level Trough < 0.5 ug/mL (0.5-1.5) Other Laboratory Tests 11/13/24 06:32 Brief Hx & Hospital Course: Sheila Hernandez is a 44-year-old female with past medical history of tubal ligation, spinal fusion, 2 back surgeries in 2022 in 2023, and 2 uterine surgeries involving cyst removals who presents to the ED with left lower quadrant pain that started 7:00 a.m. this morning and developed bilateral upper extremity numbness and tingling with left-sided weakness. Patient stated that the pain may have been attributed from the abdomen. She reports that her abdominal pain is 10/10 sharp and constant. She reports that there are no triggering or alleviating factors. She also endorsed some upper and lower lip numbness and tingling. Patient's spouse Amos is at the bedside. She reports that her OB doctor is Dr. Vo at [facility]. Patient also reports that she smokes about 15 sticks of cigarettes per day. Patient denies any recent trauma or injury, recent sick contacts, recent ingestion of spoiled food, recent travels, chest pain, shortness of breath, fever, chills, dizziness, nausea, vomiting, diarrhea, or urinary symptoms. Intractable abdominal pain possibly due to abscess Endometrium appears T-shaped thickened measuring 33.6 mm Fluid-filled tubular structure in the left adnexa measuring 6.1 x 3.3 x 3.6 cm. There is an echogenic solid structure in the left adnexa with surrounding vascularity measures 4.6 x 4.5 x 4.8 cm, possible tubo-ovarian abscess Bilateral arm numbness and tingling with left-sided weakness rule out stroke Leukocytosis likely due to abscess Tobacco use History of tubal ligation History of spinal fusion History of 2 back surgeries in 2022 in 2023 History of 2 uterine surgeries-cyst removals Condition at Discharge: Fair Final Diagnosis/Problems List see above Discharge Disposition: Home Discharge Instruct/Medications Diet: Cardiac 2g Na,low cholest Activity: No Restrictions, As Tolerated Scheduled Acetaminophen (Tylenol), 500 MG NH DAILY, (Reported) Folic Acid (Folic Acid), 1 TAB PO DAILY, (Reported) Hydrocodone-Acetaminophen (Hydrocodone Bitartrate/AC 5-325 mg), 1 TAB PO DAILY, (Reported) Ibuprofen (Ibuprofen), 600 MG PO DAILY, (Reported) Discharge Statement: "Patient was advised to return to the ER or call 911 if any headaches, dizziness, shortness of breath, chest pain, abdominal pain, bleeding, fevers, or worsening of medical condition. Patient was counseled about treatment plan, medications, possible side effects, patientverbalized understanding. All questions were answered to the best of my ability. This discharge took greater then 30 minutes in planning, reviewing documentation, counseling the patient, and discussing with other team members." ASSESSMENT ASSESSMENT Assessment Date of Service: Nov 13, 2024 Billing Provider: ANISH ORELLANA DO Common Visit Codes: 56494-ZYP/OBS DISCH DAY >30min ANISH ORELLANA DO Nov 13, 2024 15:26
[2024-11-13 17:00] VITALS: BP 112/77; PULSE 76; RESP 18; TEMP 97.7; O2SAT 98
[2024-11-13 17:23] VITALS: BP 112/77; PULSE 76; RESP 18; TEMP 97.7; O2SAT 98
[2024-11-14 11:39] LABS: Hepatitis B Surface Antigen Negative (Negative)
[2024-11-14 12:55] LABS: Hepatitis C Antibody Negative (Negative)
== END 2024-11-13 17:53 | disposition home or self-care (01) | DRG 759 ==
LOC: ER 11:31 → OVERFLOW 15:32 → WEST WING 18:27
PROVIDERS: ADMIT Internal Medicine; ATTEND Internal Medicine
DX: N70.93 Salpingitis and oophoritis, unspecified (principal); F17.210 Nicotine dependence, cigarettes, uncomplicated; N70.11 Chronic salpingitis; R20.0 Anesthesia of skin; R20.2 Paresthesia of skin; Z98.1 Arthrodesis status; Z98.51 Tubal ligation status; Z82.5 Family history of asthma and other chronic lower respiratory diseases; Z82.49 Family history of ischemic heart disease and other diseases of the circulatory system; Z81.8 Family history of other mental and behavioral disorders
CPT/HCPCS: 36415; 70450; 74177; 76830; 76856; 80048; 80053; 80170; 81001; 83605; 84702; 85025; 85610; 85730; 86803; 86850; 86900; 86901; 87040; 87340; 93005; 96365; G0378; J1885; J2543; J3490; J7060